=== PATIENT | male | born 1975 | race Hispanic/Latino ===

== ENCOUNTER 2018-01-17 10:01 | Emergency (ER) | payer SELFPAY ==
[~2018-01-17] VITALS: Ht 162.6 cm; Wt 65.0 kg
[2018-01-17 10:28] VITALS: BP 125/71
== END 2018-01-17 10:40 | disposition home or self-care (01) | DRG 607 ==
LOC: ED 10:01
DX: L21.9 Seborrheic dermatitis, unspecified (principal)